=== PATIENT | female | born 2000 | race Caucasian/White ===

== ENCOUNTER 2022-07-23 11:41 | Emergency (ER) | payer OTHER ==
[2022-07-23] MEDS ORDERED: Nitrofurantoin Monohydrate/Macrocrystalline 100 MG Cap PO ONE (12:48)
[2022-07-23] MEDS ORDERED: Phenazopyridine 100 MG Tab PO ONE (12:50)
== END 2022-07-23 13:05 | disposition home or self-care (01) ==
LOC: KA.ED 11:41
DX: N39.0 Urinary tract infection, site not specified (principal); J45.909 Unspecified asthma, uncomplicated; Z79.899 Other long term (current) drug therapy
CPT/HCPCS: 81001; 81025; 87086; 99284; A9270; 99283